=== PATIENT | male | born 1985 | race Caucasian/White ===

== ENCOUNTER 2018-11-24 23:55 | Emergency (ER) | payer SELFPAY ==
[~2018-11-24] VITALS: Ht 170.2 cm; Wt 79.5 kg
[2018-11-24 23:59] VITALS: Ht 170.2 cm; Wt 79.5 kg
[2018-11-25] MEDS ORDERED: SULFAMETHOXAZOL1 TA2 PO
[2018-11-25 00:54] LABS: BASOPHILS 0.2 % (0-2); EOSINOPHILS 8.6 % (0-7); HEMATOCRIT 39.5 % (42.0-54.0); IMMATURE GRANULOCYTES 0.2 % (0-5); LYMPHOCYTES 24.3 % (15-50); MCH 29.4 pg (26.0-34.0); MCHC 35.4 g/dL (31.0-37.0); MEAN PLATELET VOLUME 10.7 fL (7.4-10.4); MONOCYTES 6.5 % (2-11); NEUTROPHILS 60.2 % (40-80); PLATELET COUNT 149 10x3/uL (130-400); RBC 4.76 10x6/uL (4.20-6.10); RDW 12.6 % (11.5-14.5); WBC 9.9 10x3/uL (4.8-10.8)
[2018-11-25] MEDS ORDERED: CLEOCIN HCL300 MG PO (01:16)
[2018-11-25 01:35] VITALS: BP 125/80
== END 2018-11-25 01:35 | disposition home or self-care (01) ==
LOC: D.ER 23:55
PROVIDERS: Family Medicine
DX: L02.612 Cutaneous abscess of left foot (principal)